=== PATIENT | female | born 1960 | race Caucasian/White ===

== ENCOUNTER → 2021-10-08 00:07 | Outpatient (CLI) | payer OTHER, SELFPAY ==
--- NOTE | 2021-10-08 | DI.DEXA_ITS ---
Exam(s) XR DEXA BONE DENSITY W/WO SOFIA EXAM: XR DEXA BONE DENSITY W/WO SOFIA CLINICAL HISTORY: RT BREAST CA,SCREENING FOR OSTEOPOROSIS PRE CORRECTION USE AROMATASE TECHNIQUE: Routine DEXA evaluation of the lumbar spine, hip, or forearm. COMPARISON: Prior DEXA scan performed August 2018 FINDINGS: Performed on a [employer] unit. Lateral image: No compression fracture evident. Lumbar Spine total T-score: 0.0 . Prior 2008 reading was 0.8 Hip total T-score:-1.6. Prior 2008 reading was 0.3. Independent reading at the level of the femoral neck yields at T-score of -1.4. Forearm total T-score: -0.9 IMPRESSION: Bone mineral density measures in the osteopenia range. Fracture risk is moderate. Note: Any spine fracture indicates 5x risk for subsequent spine fracture and 2x risk for subsequent h ip fracture. World Health Organization criteria for BMD interpretation classify patients: Normal...... T- Score at or above -1.0 Osteopenic... T- Score between -1.0 and -2.5 Osteoporosis... T-Score at or below -2.5
--- OUTSIDE RECORDS SUMMARY | 2021-10-08 00:08 | XMS_ITS | Summary of Care ---
:1960 Author Organization [facility] Address [address] [facility] [facility] [address] [place] [address] Phone Care Team Providers Name Role Phone Jw Kaplan MD Primary Care Provider Reason for Referral Diagnostic/Screening (Emergency) - Pending Review Specialty Diagnoses / Procedures Referred By Contact Refer red To Contact Radiology Diagnoses Malignant neoplasm of right female breast, unspecified estrogen receptor status, unspecified site of breast (HCC) Essential hypertension, malignant Jw Kaplan MD [facility] Type 2 diabetes mellitus wit hout complication, unspecified whether half-way insulin use (HCC) [address] [place] [address] [place], [place] [phone] Fax: [phone] Referral ID Status Reason Start Date Expiration Date Visits V isits Requested Authorized [id number] Pending 05/28/2021 05/28/2022 1 1 Review Diagnostic/Screening (Emergency) - Pending Review Specialty Diagnoses / Procedures Referred By Contact Refer red To Contact Radiology Diagnoses Malignant neoplasm of right female breast, unspecified estrogen receptor status, unspecified site of breast (HCC) Essential hypertension, malignant Jw Kaplan MD [facility] Type 2 diabetes mellitus wit hout complication, unspecified whether half-way insulin use (HCC) [address] [place] [address] [place], [place] [phone] Fax: Referral ID Status Reason Start Date Expiration Date Visits V isits Requested Authorized [id number] Pending 05/28/2021 05/28/2022 1 1 Review Reason for Visit Diagnostic/Screening (Emergency) - Pending Review Specialty Diagnoses / Procedures Referred By Contact Refer red To Contact Radiology Diagnoses Malignant neoplasm of right female breast, unspecified estrogen receptor status, unspecified site of breast (HCC) Essential hypertension, malignant Jw Kaplan MD 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 Jw Kaplan r, Malignant neoplasm of right female breast, unspecified estrogen receptor status, unspecified site of breast (HCC); [facility] Essential hypertension, malignant; [place] [address] Type 2 diabetes mellitus without complic ation, unspecified whether dentistry professor insulin use (HCC) [address] [place], [place] [phone] Social History Tobacco Use Types Packs/Day Years Used Date Never Assessed Sex Assigned at Date Recorded Not on file documented as of this encounter Plan of Treatment Health Maintenance Due Date Last Done Comments Hepatitis C Screening [address] CT Colonography 1978 ColoGuard 1978 Colonoscopy 1978 Colorectal Combination Topic 1978 FIT 1978 Sigmoidoscopy 1978 Cervical Cancer Screening 1990 (Pap) Vaccine: Zoster (1 of 2) 2010 Breast Cancer Screening 08/09/2015 COVID-19 Vaccine (3 - Booster 01/12/2021 08/12/2020, for Pfizer series) 07/22/2020 Vaccine: Influenza (Season 10/14/2021 11/06/2013 Ended) Vaccine: Dtap/Tdap/Td (3 - Td 09/06/2023 09/05/2013, or Tdap) 02/14/2008 Vaccine: Pneumococcal 19-64 Aged Out 01/23/2016 No l onger eligible based on patient's age to complete this to pic documented as of this encounter Procedures Procedure Name Priority Date/Time Associated Diagnosis Comme nts CT ABDOMEN PELVIS W STAT 06/01/2021 12:24 PM Malignant neop lasm Results for this CONTRAST PDT of right female procedure ar e in breast, unspecified the resu lts estrogen receptor section. 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 status, unspecified site of breast ( HCC) Essential hypertension, malignant Type 2 diabetes mellitus without complication, unspecified whether half-way insulin use (HCC) documented in this encounter Results CT Chest w Contrast (06/01/2021 12:24 PM PDT) Anatomical Region Laterality Modality Chest Computed Tomography Specimen Impressions [facility] - 06/01/2021 12:59 PM PDT IMPRESSION: 1. ??Irregular right breast mass, compat ible with provided history of breast cancer. 2. ??No specific CT evidence of metastat ic disease to the chest, abdomen, or pelvis. 3. ??Scattered subcentimeter lymph nodes noted, as above, nonspecific. 4. ??Mild atherosclerotic vascular disea se. 5. ??Cholelithiasis. 6. ??Probable subcentimeter renal cysts. 7. ??Additional findings, as above. Narrative [facility] - 06/01/2021 12:59 PM PDT EXAMINATION: ??CT CHEST W CONTRAST, CT ABDOMEN PELVIS W CONTRAST HISTORY: ??Indication Not Found - See Ad ditional Reason for Exam Comments. C50.911: Malignant neoplasm of unspecified site of right female breast (HCC); I10: Essential (primary) hypertension; E11.9: Typ e 2 diabetes mellitus without complicati ons (HCC) COMPARISON: ??None available TECHNIQUE: ??Volumetric helical CT image s of the chest abdomen pelvis with 100 mL IV Omnipaque 350. ??Oral contrast was administered. ??CT dose reduction technique was used. This patient received a total of 2 expos ure event(s) during this CT examination. The CTDIvol and DLP radiation dose values for each exposure are: Exposure: ; ??Series: ; ??Anatomy: Chest ; ??Phantom: 32 cm; ??CTDIvol (mGy): 18; ??DLP (mGy-cm): 915 Exposure: 1; ??Series: 3; ??Anatomy: [address]; ??Phantom: 32 cm; ??CTDIvol (mGy): 17; ??DLP (mGy-cm): 548 The following accession numbers are rela emmanuel to this dose report [[id number]]: [id number] (accession [id number]), This patient received a total of 2 expos ure event(s) during this CT examination. The CTDIvol and DLP radiation dose values for each exposure are: Exposure: ; ??Series: ; ??Anatomy: Chest ; ??Phantom: 32 cm; ??CTDIvol (mGy): 18; ??DLP (mGy-cm): 915 Exposure: 1; ??Series: 3; ??Anatomy: [address]; ??Phantom: 32 cm; ??CTDIvol (mGy): 17; ??DLP (mGy-cm): 548 The following accession numbers are rela emmanuel to this dose report [[id number]]: [id number] (accession [id number]) FINDINGS: CHEST Diffuse Lung Findings and Airways: Mild bibasilar subsegmental atelectasis/guarding. INDIVIDUAL LOBES * ??Right upper lobe: No suspicious nodu le. * ??Right middle lobe: No suspicious nod ule. * ??Right lower lobe: No suspicious nodu le. * ??Left upper lobe: No suspicious nodul e. * ??Left lower lobe: No suspicious nodul e. Pleura: No pleural effusion or thickenin g. ??No pneumothorax. Heart and pericardium: Heart is normal i n size. ??No significant pericardial effusion. Mediastinum and franklin: Nonspecific 4 mm r ight cardiophrenic lymph node. ??Subcentimeter mediastinal lymph nodes are also seen, nonspecific. ??No hilar lymphadenopathy. ??Esophagus is grossly unremarkable. Vessels: Aorta and its branches are norm al in caliber. ??Mild atherosclerotic vascular disease. ??Main pulmonary artery is normal in caliber. ??Although not optimized for the detection of pulmonary embo li, no large central filling defects are identified. Lower neck: The visualized thyroid gland is unremarkable. ??No enlarged supraclavicular lymph nodes. Chest Wall: Subcentimeter axillary lymph nodes. ??No suspicious axillary lymphadenopathy. ??Irregular right breast mass with associated punctate density, may reflect biopsy marker clip. ??Mass measures approximately 2.3 x 2.1 x 2 cm. Bones: No definite acute or suspicious o sseous lesion. ABDOMEN/PELVIS Liver: Possible mild hepatic steatosis. ??There is no focal hepatic mass. Gallbladder: Small calcified gallstones are seen. Biliary System: Non-dilated. Pancreas: Unremarkable. Spleen: Unremarkable. ??Tiny splenule is noted. Adrenals: Unremarkable. Kidneys: Enhance symmetrically. ??There is a 3 mm low-density lesion in the lower pole of the left kidney, too small to characterize. ??There is a 7 mm exophytic lesion arising from the anterior right kidney, probably a cyst. Ureters: Unremarkable. Bladder: Incompletely distended, appears grossly unremarkable. Pelvis: Uterus and bilateral adnexal reg ions are grossly unremarkable. Stomach: Grossly unremarkable. Duodenum: Grossly unremarkable. Small Bowel: Grossly unremarkable. Colon: Grossly unremarkable. Appendix: Not definitely identified. ??N o obvious secondary CT signs of acute appendicitis. Lymph Nodes: No abnormal lymph node enla rgement in the abdomen or pelvis per CT size criteria. ??Subcentimeter mesenteric and retroperitoneal lymph nodes are noted, nonspecific, may be reactive. ??There is a 9 mm periportal lymph node. ??Ther e is a 9 mm precaval lymph node. Peritoneum: No free intraperitoneal flui d or air. ??No organized/located collection. Retroperitoneum: Unremarkable. Vessels: Aorta and its branches are norm al in caliber. ??Mild atherosclerotic vascular calcifications are seen. ??The inferior vena cava is unremarkable. Abdominal Wall: Unremarkable. Bones: No definite acute or suspicious o sseous lesion. ??Diffuse decreased bone mineralization, suggesting osteopenia. ??Multilevel spondylosis, worst at L4-L5. ??Grade 1 degenerative anterolisthesis at this level. Procedure Note Courtney Souza MD - 06/01/2021 EXAMINATION: CT CHEST W CONTRAST, CT ABD OMEN PELVIS W CONTRAST HISTORY: Indication Not Found - See Chris tional Reason for Exam Comments. C50.911: Malignant neoplasm of unspecified site of right female breast (HCC); I10: Essential (primary) hypertension; E11.9: Type 2 diabetes mellitus without complications (HCC) COMPARISON: None available TECHNIQUE: Volumetric helical CT images of the chest abdomen pelvis with 100 mL IV Omnipaque 350. Oral contrast was administered. CT dose reduction technique was used. This patient received a total of 2 expos ure event(s) during this CT examination. The CTDIvol and DLP radiation dose values for each exposure are: Exposure: ; Series: ; Anatomy: Chest; Ph antom: 32 cm; CTDIvol (mGy): 18; DLP (mGy-cm): 915 Exposure: 1; Series: 3; Anatomy: Chest; Phantom: 32 cm; CTDIvol (mGy): 17; DLP (mGy-cm): 548 The following accession numbers are rela emmanuel to this dose report [[id number]]: [id number] (accession [id number]), This patient received a total of 2 expos ure event(s) during this CT examination. The CTDIvol and DLP radiation dose values for each exposure are: Exposure: ; Series: ; Anatomy: Chest; Ph antom: 32 cm; CTDIvol (mGy): 18; DLP (mGy-cm): 915 Exposure: 1; Series: 3; Anatomy: Chest; Phantom: 32 cm; CTDIvol (mGy): 17; DLP (mGy-cm): 548 The following accession numbers are rela emmanuel to this dose report [[id number]]: [id number] (accession [id number]) FINDINGS: CHEST Diffuse Lung Findings and Airways: Mild bibasilar subsegmental atelectasis/guarding. INDIVIDUAL LOBES * Right upper lobe: No suspicious nodule . * Right middle lobe: No suspicious nodul e. * Right lower lobe: No suspicious nodule . * Left upper lobe: No suspicious nodule. * Left lower lobe: No suspicious nodule. Pleura: No pleural effusion or thickenin g. No pneumothorax. Heart and pericardium: Heart is normal i n size. No significant pericardial effusion. Mediastinum and franklin: Nonspecific 4 mm r ight cardiophrenic lymph node. Subcentimeter mediastinal lymph nodes are also seen, nonspecific. No hilar lymphadenopathy. Esophagus is grossly unremarkable. Vessels: Aorta and its branches are norm al in caliber. Mild atherosclerotic vascular disease. Main pulmonary artery is normal in caliber. Although not optimized for the detection of pulmonary emboli, no large central filling defects are identified. Lower neck: The visualized thyroid gland is unremarkable. No enlarged supraclavicular lymph nodes. Chest Wall: Subcentimeter axillary lymph nodes. No suspicious axillary lymphadenopathy. Irregular right breast mass with associated punctate density, may reflect biopsy marker clip. Mass measures approximately 2.3 x 2.1 x 2 cm. Bones: No definite acute or suspicious o sseous lesion. ABDOMEN/PELVIS Liver: Possible mild hepatic steatosis. There is no focal hepatic mass. Gallbladder: Small calcified gallstones are seen. Biliary System: Non-dilated. Pancreas: Unremarkable. Spleen: Unremarkable. Tiny splenule is n oted. Adrenals: Unremarkable. Kidneys: Enhance symmetrically. There is a 3 mm low-density lesion in the lower pole of the left kidney, too small to characterize. There is a 7 mm exophytic lesion arising from the anterior right kidney, probably a cyst. Ureters: Unremarkable. Bladder: Incompletely distended, appears grossly unremarkable. Pelvis: Uterus and bilateral adnexal reg ions are grossly unremarkable. Stomach: Grossly unremarkable. Duodenum: Grossly unremarkable. Small Bowel: Grossly unremarkable. Colon: Grossly unremarkable. Appendix: Not definitely identified. No obvious secondary CT signs of acute appendicitis. Lymph Nodes: No abnormal lymph node enla rgement in the abdomen or pelvis per CT size criteria. Subcentimeter mesenteric and retroperitoneal lymph nodes are noted, nonspecific, may be reactive. There is a 9 mm periportal lymph node. There is a 9 mm precaval lymph node. Peritoneum: No free intraperitoneal flui d or air. No organized/located collection. Retroperitoneum: Unremarkable. Vessels: Aorta and its branches are norm al in caliber. Mild atherosclerotic vascular calcifications are seen. The inferior vena cava is unremarkable. Abdominal Wall: Unremarkable. Bones: No definite acute or suspicious o sseous lesion. Diffuse decreased bone mineralization, suggesting osteopenia. Multilevel spondylosis, worst at L4-L5. Grade 1 degenerative anterolisthesis at this level. IMPRESSION: IMPRESSION: 1. Irregular right breast mass, compatib le with provided history of breast cancer. 2. No specific CT evidence of metastatic disease to the chest, abdomen, or pelvis. 3. Scattered subcentimeter lymph nodes n oted, as above, nonspecific. 4. Mild atherosclerotic vascular disease . 5. Cholelithiasis. 6. Probable subcentimeter renal cysts. 7. Additional findings, as above. Performing Organization Address City/State/ZIP Code Phon e Number [facility] CT Abdomen Pelvis w Contrast (06/01/2021 12:24 PM PDT) Anatomical Region Laterality Modality Abdomen, Pelvis, Hip Computed Tomography Specimen Impressions [facility] - 06/01/2021 12:59 PM PDT IMPRESSION: 1. ??Irregular right breast mass, compat ible with provided history of breast cancer. 2. ??No specific CT evidence of metastat ic disease to the chest, abdomen, or pelvis. 3. ??Scattered subcentimeter lymph nodes noted, as above, nonspecific. 4. ??Mild atherosclerotic vascular disea se. 5. ??Cholelithiasis. 6. ??Probable subcentimeter renal cysts. 7. ??Additional findings, as above. Narrative [facility] - 06/01/2021 12:59 PM PDT EXAMINATION: ??CT CHEST W CONTRAST, CT ABDOMEN PELVIS W CONTRAST HISTORY: ??Indication Not Found - See Ad ditional Reason for Exam Comments. C50.911: Malignant neoplasm of unspecified site of right female breast (HCC); I10: Essential (primary) hypertension; E11.9: Typ e 2 diabetes mellitus without complicati ons (HCC) COMPARISON: ??None available TECHNIQUE: ??Volumetric helical CT image s of the chest abdomen pelvis with 100 mL IV Omnipaque 350. ??Oral contrast was administered. ??CT dose reduction technique was used. This patient received a total of 2 expos ure event(s) during this CT examination. The CTDIvol and DLP radiation dose values for each exposure are: Exposure: ; ??Series: ; ??Anatomy: Chest ; ??Phantom: 32 cm; ??CTDIvol (mGy): 18; ??DLP (mGy-cm): 915 Exposure: 1; ??Series: 3; ??Anatomy: [address]; ??Phantom: 32 cm; ??CTDIvol (mGy): 17; ??DLP (mGy-cm): 548 The following accession numbers are rela emmanuel to this dose report [[id number]]: [id number] (accession [id number]), This patient received a total of 2 expos ure event(s) during this CT examination. The CTDIvol and DLP radiation dose values for each exposure are: Exposure: ; ??Series: ; ??Anatomy: Chest ; ??Phantom: 32 cm; ??CTDIvol (mGy): 18; ??DLP (mGy-cm): 915 Exposure: 1; ??Series: 3; ??Anatomy: [address]; ??Phantom: 32 cm; ??CTDIvol (mGy): 17; ??DLP (mGy-cm): 548 The following accession numbers are rela emmanuel to this dose report [[id number]]: [id number] (accession [id number]) FINDINGS: CHEST Diffuse Lung Findings and Airways: Mild bibasilar subsegmental atelectasis/guarding. INDIVIDUAL LOBES * ??Right upper lobe: No suspicious nodu le. * ??Right middle lobe: No suspicious nod ule. * ??Right lower lobe: No suspicious nodu le. * ??Left upper lobe: No suspicious nodul e. * ??Left lower lobe: No suspicious nodul e. Pleura: No pleural effusion or thickenin g. ??No pneumothorax. Heart and pericardium: Heart is normal i n size. ??No significant pericardial effusion. Mediastinum and franklin: Nonspecific 4 mm r ight cardiophrenic lymph node. ??Subcentimeter mediastinal lymph nodes are also seen, nonspecific. ??No hilar lymphadenopathy. ??Esophagus is grossly unremarkable. Vessels: Aorta and its branches are norm al in caliber. ??Mild atherosclerotic vascular disease. ??Main pulmonary artery is normal in caliber. ??Although not optimized for the detection of pulmonary embo li, no large central filling defects are identified. Lower neck: The visualized thyroid gland is unremarkable. ??No enlarged supraclavicular lymph nodes. Chest Wall: Subcentimeter axillary lymph nodes. ??No suspicious axillary lymphadenopathy. ??Irregular right breast mass with associated punctate density, may reflect biopsy marker clip. ??Mass measures approximately 2.3 x 2.1 x 2 cm. Bones: No definite acute or suspicious o sseous lesion. ABDOMEN/PELVIS Liver: Possible mild hepatic steatosis. ??There is no focal hepatic mass. Gallbladder: Small calcified gallstones are seen. Biliary System: Non-dilated. Pancreas: Unremarkable. Spleen: Unremarkable. ??Tiny splenule is noted. Adrenals: Unremarkable. Kidneys: Enhance symmetrically. ??There is a 3 mm low-density lesion in the lower pole of the left kidney, too small to characterize. ??There is a 7 mm exophytic lesion arising from the anterior right kidney, probably a cyst. Ureters: Unremarkable. Bladder: Incompletely distended, appears grossly unremarkable. Pelvis: Uterus and bilateral adnexal reg ions are grossly unremarkable. Stomach: Grossly unremarkable. Duodenum: Grossly unremarkable. Small Bowel: Grossly unremarkable. Colon: Grossly unremarkable. Appendix: Not definitely identified. ??N o obvious secondary CT signs of acute appendicitis. Lymph Nodes: No abnormal lymph node enla rgement in the abdomen or pelvis per CT size criteria. ??Subcentimeter mesenteric and retroperitoneal lymph nodes are noted, nonspecific, may be reactive. ??There is a 9 mm periportal lymph node. ??Ther e is a 9 mm precaval lymph node. Peritoneum: No free intraperitoneal flui d or air. ??No organized/located collection. Retroperitoneum: Unremarkable. Vessels: Aorta and its branches are norm al in caliber. ??Mild atherosclerotic vascular calcifications are seen. ??The inferior vena cava is unremarkable. Abdominal Wall: Unremarkable. Bones: No definite acute or suspicious o sseous lesion. ??Diffuse decreased bone mineralization, suggesting osteopenia. ??Multilevel spondylosis, worst at L4-L5. ??Grade 1 degenerative anterolisthesis at this level. Procedure Note Courtney Souza MD - 06/01/2021 EXAMINATION: CT CHEST W CONTRAST, CT ABD OMEN PELVIS W CONTRAST HISTORY: Indication Not Found - See Chris tional Reason for Exam Comments. C50.911: Malignant neoplasm of unspecified site of right female breast (HCC); I10: Essential (primary) hypertension; E11.9: Type 2 diabetes mellitus without complications (HCC) COMPARISON: None available TECHNIQUE: Volumetric helical CT images of the chest abdomen pelvis with 100 mL IV Omnipaque 350. Oral contrast was administered. CT dose reduction technique was used. This patient received a total of 2 expos ure event(s) during this CT examination. The CTDIvol and DLP radiation dose values for each exposure are: Exposure: ; Series: ; Anatomy: Chest; Ph antom: 32 cm; CTDIvol (mGy): 18; DLP (mGy-cm): 915 Exposure: 1; Series: 3; Anatomy: Chest; Phantom: 32 cm; CTDIvol (mGy): 17; DLP (mGy-cm): 548 The following accession numbers are rela emmanuel to this dose report [[id number]]: [id number] (accession [id number]), This patient received a total of 2 expos ure event(s) during this CT examination. The CTDIvol and DLP radiation dose values for each exposure are: Exposure: ; Series: ; Anatomy: Chest; Ph antom: 32 cm; CTDIvol (mGy): 18; DLP (mGy-cm): 915 Exposure: 1; Series: 3; Anatomy: Chest; Phantom: 32 cm; CTDIvol (mGy): 17; DLP (mGy-cm): 548 The following accession numbers are rela emmanuel to this dose report [[id number]]: [id number] (accession [id number]) FINDINGS: CHEST Diffuse Lung Findings and Airways: Mild bibasilar subsegmental atelectasis/guarding. INDIVIDUAL LOBES * Right upper lobe: No suspicious nodule . * Right middle lobe: No suspicious nodul e. * Right lower lobe: No suspicious nodule . * Left upper lobe: No suspicious nodule. * Left lower lobe: No suspicious nodule. Pleura: No pleural effusion or thickenin g. No pneumothorax. Heart and pericardium: Heart is normal i n size. No significant pericardial effusion. Mediastinum and franklin: Nonspecific 4 mm r ight cardiophrenic lymph node. Subcentimeter mediastinal lymph nodes are also seen, nonspecific. No hilar lymphadenopathy. Esophagus is grossly unremarkable. Vessels: Aorta and its branches are norm al in caliber. Mild atherosclerotic vascular disease. Main pulmonary artery is normal in caliber. Although not optimized for the detection of pulmonary emboli, no large central filling defects are identified. Lower neck: The visualized thyroid gland is unremarkable. No enlarged supraclavicular lymph nodes. Chest Wall: Subcentimeter axillary lymph nodes. No suspicious axillary lymphadenopathy. Irregular right breast mass with associated punctate density, may reflect biopsy marker clip. Mass measures approximately 2.3 x 2.1 x 2 cm. Bones: No definite acute or suspicious o sseous lesion. ABDOMEN/PELVIS Liver: Possible mild hepatic steatosis. There is no focal hepatic mass. Gallbladder: Small calcified gallstones are seen. Biliary System: Non-dilated. Pancreas: Unremarkable. Spleen: Unremarkable. Tiny splenule is n oted. Adrenals: Unremarkable. Kidneys: Enhance symmetrically. There is a 3 mm low-density lesion in the lower pole of the left kidney, too small to characterize. There is a 7 mm exophytic lesion arising from the anterior right kidney, probably a cyst. Ureters: Unremarkable. Bladder: Incompletely distended, appears grossly unremarkable. Pelvis: Uterus and bilateral adnexal reg ions are grossly unremarkable. Stomach: Grossly unremarkable. Duodenum: Grossly unremarkable. Small Bowel: Grossly unremarkable. Colon: Grossly unremarkable. Appendix: Not definitely identified. No obvious secondary CT signs of acute appendicitis. Lymph Nodes: No abnormal lymph node enla rgement in the abdomen or pelvis per CT size criteria. Subcentimeter mesenteric and retroperitoneal lymph nodes are noted, nonspecific, may be reactive. There is a 9 mm periportal lymph node. There is a 9 mm precaval lymph node. Peritoneum: No free intraperitoneal flui d or air. No organized/located collection. Retroperitoneum: Unremarkable. Vessels: Aorta and its branches are norm al in caliber. Mild atherosclerotic vascular calcifications are seen. The inferior vena cava is unremarkable. Abdominal Wall: Unremarkable. Bones: No definite acute or suspicious o sseous lesion. Diffuse decreased bone mineralization, suggesting osteopenia. Multilevel spondylosis, worst at L4-L5. Grade 1 degenerative anterolisthesis at this level. IMPRESSION: IMPRESSION: 1. Irregular right breast mass, compatib le with provided history of breast cancer. 2. No specific CT evidence of metastatic disease to the chest, abdomen, or pelvis. 3. Scattered subcentimeter lymph nodes n oted, as above, nonspecific. 4. Mild atherosclerotic vascular disease . 5. Cholelithiasis. 6. Probable subcentimeter renal cysts. 7. Additional findings, as above. Performing Organization Address City/State/ZIP Code Phon e Number [facility] documented in this encounter Visit Diagnoses Diagnosis Malignant neoplasm of right female breas t, unspecified estrogen receptor status, unspecified site of breast (HCC) Essential hypertension, malignant Type 2 diabetes mellitus without complic ation, unspecified whether half-way insulin use (HCC) documented in this encounter Administered Medications Inactive Administered Medications - up to 3 most recent administrations Medication Order MAR Action Action Date Dose Rate Site iohexol (OMNIPAQUE 350) 350 Given 06/01/2021 11:45 AM PDT 100 mL s mg/mL injection 100 mL 100 mL, Intravenous, ONCE PRN, Other, Starting on Mon06/01/21 at 1225, For 1 dose, Cat Scanner documented in this encounter Insurance Payer Benefit Plan / Subscriber ID Effective Dates Phone Addre ss Type Group [employer] AET[employer] PPO [id number] 2021-Present [phone] [address] [id number] [place] [address] documented as of this encounter Advance Directives Documents on File Type Date Recorded Patient Carboy Filler Explanati on Power of Health Economist Advance Directive Care Teams Paleology Professor Relationship Specialty Start Date End Date Jw Kaplan MD PCP - General Hematology and Oncology 05/28/21 05/28/[id number] [place] [address] documented as of this encounter
== END ==
PROVIDERS: PCP Family Medicine; Visit Provider Internal Medicine Medical Oncology
DX: M85.88 Other specified disorders of bone density and structure, other site (principal); Z85.3 Personal history of malignant neoplasm of breast; Z79.811 Long term (current) use of aromatase inhibitors
CPT/HCPCS: 77080

== ENCOUNTER 2022-09-06 08:32 | Outpatient (CLI) | payer OTHER, SELFPAY ==
[2022-09-06 13:00] LABS: Hemoglobin A1C 7.1 % (<5.7)
[2022-09-06 13:11] LABS: ALT 67 U/L (14-59); AST 24 U/L (15-37); Alkaline Phosphatase 96 U/L (46-116); Anion Gap 12.1 mmol/L (3-11); BUN 27 mg/dL (7-18); Bilirubin, Total 0.4 mg/dL (0.2-1.0); CO2 23.9 mmol/L (21.0-32.0); CREATININE 0.8 mg/dL (0.55-1.02); Calcium 9.9 mg/dL (8.5-10.1); Calculated LDL 136 mg/dL (<100); Chloride 101 mmol/L (98-107); Cholesterol 237 mg/dL (<200); Estimated GFR 83.26 (mL/min/1.73m2); Glucose 161 mg/dL (74-106); HDL Cholesterol 52 mg/dL (40-60); Potassium 3.9 mmol/L (3.5-5.1); Sodium 137 mmol/L (136-145); TSH (W/Ref FT4) 2.67 uIU/mL (0.36-3.74); Triglyceride 248 mg/dL (<150)
== END 2022-09-06 08:33 | disposition home or self-care (01) ==
LOC: LOS 08:32
PROVIDERS: PCP Family Medicine; Referring Provider Family Medicine; Visit Provider Family Medicine
DX: E11.9 Type 2 diabetes mellitus without complications (principal); I10 Essential (primary) hypertension
CPT/HCPCS: 36415; 80053; 80061; 83036; 84443